=== PATIENT | female | born 1970 | race Caucasian/White ===

== ENCOUNTER 2016-10-17 18:48 | Inpatient (IN) | payer OTHER ==
[~2016-10-17] VITALS: Ht 160 cm; Wt 77.1 kg
--- NOTE | 2016-10-17 19:10 | NUR ---
PRESENTS TO THE ED COMPLAINING OF DIFF BREATHING. THIS PAST TUESDAY SHE HAD THE SAME PROBLEM AND SHE WAS EVALUATED AT THE [facility] WHERE SHE WAS DIAGNOSED WITH ASTHMA EXACERBATION. SHE PRESENTS TODAY WITH THE SAME SYMPTOMS HOWEVER HSE REPORTED IT IS WORSE NOW. ON ARRIVAL HE O2 WAS 88% FOR SHE WAS PLACED ON 2 L NC AND EKG WAS PERFORMED.
--- NOTE | 2016-10-17 19:16 | NUR ---
RESP AT BEDSIDE FOR DUO-NEB TREATMENT.
--- NOTE | 2016-10-17 19:26 | NUR ---
PA STUDENT AT BEDSIDE FOR EVAL.
--- NOTE | 2016-10-17 19:33 | ED DYSPNEA/ASTHMA COMPLAINT ---
History of Present Illness General Chief Complaint: Wheezing/Asthma Stated Complaint: ASTHMA ATTACK; 02 90% AT [facility] Source: patient Exam Limitations: no limitations Allergies Coded Allergies: No Known Allergies (10/17/16) Reconcile Medications Albuterol Sulfate (Proair Hfa) 90 MCG HFA.AER.AD 2 PUF INH Q4-6 PRN PRN SOB Budesonide/Formoterol Fumarate (Symbicort 160-4.5 Mcg Inhaler) 160 MCG-4.5 MCG/ ACTUATION HFA.AER.AD 2 PUF INH BID asthma Fluticasone Propionate 50 MCG/ACTUATION SPRAY.SUSP 2 SPRAY TAE DAILY nasal congestion Loratadine 10 MG TABLET 10 MG PO DAILY allergy Omeprazole 20 MG CAPSULE.DR 40 MG PO DAILY AC acid reduction Prednisone 10 MG TABLET 1 TAB PO SI ASTHMA TAKE 6 TABS FOR ONE DAY (10/21), THEN TAKE 5 TABS FOR TWO DAYS (10/22-10/23), THEN TAKE 4 TABS FOR TWO DAYS (10/24-10/25), THEN TAKE 3 TABS FOR TWO DAYS (10/26-10/27), THEN TAKE 2 TABS FOR TWO DAYS (10/28-10/29), THEN TAKE 1 TAB FOR TWO DAYS (10/30-10/31), THEN STOP. Triage Note: PRESENTS TO THE ED COMPLAINING OF DIFF BREATHING. THIS PAST TUESDAY SHE HAD THE SAME PROBLEM AND SHE WAS EVALUATED AT THE [facility] WHERE SHE WAS DIAGNOSED WITH ASTHMA EXACERBATION. SHE PRESENTS TODAY WITH THE SAME SYMPTOMS HOWEVER HSE REPORTED IT IS WORSE NOW. ON ARRIVAL HE O2 WAS 88% FOR SHE WAS PLACED ON 2 L NC AND EKG WAS PERFORMED. Triage Nurses Notes Reviewed? yes : No Patient currently breastfeeds: No HPI: 46 YO female with hx of asthma, presents with sob, started yesterday, wosre today, 6pm severe. ? dust allergy triggering it. inhailers arent working. she was seen tuesday at an urgent care and given neb treatment and felt better. no further treatment was given. no fever, no flu like illness, no cough or hemoptysis, no chest pain. she stopped her advair- does not take it consistantly. she is not a smoker. (ROBSON KIM,ZACH) Vital Signs & Intake/Output Vital Signs & Intake/Output ED Intake and Output 10/21 0000 10/20 1200 Intake Total 600 100 Output Total Balance 600 100 Intake, Oral 600 100 Past History Travel History Traveled to [place] past 21 day No Medical History Any Pertinent Medical History? see below for history Respiratory: asthma Surgical History Surgical History: non-contributory Psychosocial History What is your primary language Polish Tobacco Use: Never used Family History Hx Contributory? No (ZACH YUSUF) Review of Systems Review of Systems Constitutional: Reports: see HPI. EENTM: Reports: no symptoms. Respiratory: Reports: see HPI. Cardiovascular: Reports: no symptoms. GI: Reports: no symptoms. Genitourinary: Reports: no symptoms. Musculoskeletal: Reports: no symptoms. Skin: Reports: no symptoms. Neurological/Psychological: Reports: no symptoms. Hematologic/Endocrine: Reports: no symptoms. Immunologic/Allergic: Reports: no symptoms. All Other Systems: Reviewed and Negative (ZACH YUSUF) Physical Exam Physical Exam Respiratory: respiratory distress Comments: Well-developed well-nourished HEENT: Atraumatic, extraocular motion intact Neck: Supple, no lymphadenopathy Back: Nontender Respiratory: Moderate respiratory distress, increased respiratory rate and effort, tachypnea, diffuse wheezing and rhonchi noted throughout. Heart: Tachycardic no murmur Abdomen: Soft nontender nondistended Extremities: No edema, full range of motion, no calf pain. Neuro: Alert and oriented x3 Psych: Mood affect normal, normal memory normal judgment. Skin: Warm and dry, no rash on exposed skin (ZACH YUSUF) Core Measures ACS in differential dx? No Severe Sepsis Present: No Septic Shock Present: No (JERI BLAKELY,ARTURO Britt) Progress Differential Diagnosis: asthma, AMI, altitude sickness, bronchitis, costochondritis, CHF, COPD, musculoskeletal pain, pericarditis, pulmonary embolism, pneumonia, pneumothorax, rib fracture, unstable angina Diagnostic Imaging: Viewed by Me: Radiology Read. Discussed w/RAD: Radiology Read. CXR Impression: PATIENT: GERA CACERES PRESENT AGE: 46 PATIENT ACCOUNT NO: [id number] : 71 LOCATION: [facility] ORDERING PHYSICIAN: ZACH KIM SERVICE DATE: 10/17/16 EXAM TYPE: RAD - XRY-PORTABLE CHEST XRAY EXAMINATION: XR PORTABLE CHEST CLINICAL INFORMATION: Asthma exacerbation. Shortness of breath, wheezing. COMPARISON: No relevant prior studies are available for comparison. TECHNIQUE: Portable AP semiupright view of the chest was obtained. FINDINGS: No focal consolidation. No pneumothorax or pleural effusion. No enlargement of the cardiomediastinal silhouette. The visualized osseous and soft tissue structures are unremarkable. IMPRESSION: No focal consolidation. DICTATED BY: BANDAR ARNETT MD DATE/TIME DICTATED:1999 ONLINE CONTENT EDITOR:ABDULAZIZ Initial ED EKG: sinus tach at 105. no st/t wave changes. Rhythm Strip: sinus tachycardia Hand-Off Endorsed To: ARTURO CARMICHAEL MD Endorsed Time: 2100 Pending: other (re eval after MG iv given) Comments: Patient immediately brought into room 4 for evaluation due to hypoxia and wheezing and shortness of breath. DuoNeb treatment was ordered followed by 2 more albuterol treatments continuously. She was continuously monitored and reevaluated. She feels better however still with significant wheezing and rhonchi. Chest x-ray is unremarkable. EKG is unremarkable except for tachycardia. She was given 125 mg a site Medrol IV. Resting off oxygen her O2 sat was 90-91% after treatments. She was ambulated in the department and her O2 sat dropped to 87%, she felt off-balance and weak. She was placed back on supplemental oxygen via nasal cannula. At this time I do not feel as the patient is safe to be discharged home, will give HER-2 grams of magnesium IV and obtain blood tests and admission is considered. She was signed out to Dr. Carmichael at change of shift, she does not improve over the next hour or so we will admit her to the hospital. (ZACH YUSUF) Plan of Care: Orders Procedure Date/time Status Discharge Patient 10/20 UNK Active AEROSOL CHG 10/19 UNK Complete PEAK FLOW MEASUREMENT 10/19 UNK Complete OXYGEN 10/19 UNK Complete OXYGEN DAILY CHARGE 10/19 UNK Complete Departure Departure Disposition: STILL A PATIENT Condition: Stable Clinical Impression Primary Impression: Status asthmaticus Qualifiers: Asthma severity: severe persistent Qualified Code: J45.52 - Severe persistent asthma with status asthmaticus Secondary Impressions: Hypoxia Referrals: UNKNOWN (PCP/Family) Departure Forms: Customer Survey General Discharge Information Prescriptions: Current Visit Scripts Budesonide/Formoterol Fumarate (Symbicort 160-4.5 Mcg Inhaler) 2 PUF INH BID 28 Days Omeprazole 40 MG PO DAILY AC 28 Days Loratadine 10 MG PO DAILY 28 Days Albuterol Sulfate (Proair Hfa) 2 PUF INH Q4-6 PRN PRN SOB #1 INHAL Fluticasone Propionate 2 SPRAY TAE DAILY 28 Days Prednisone 1 TAB PO SI #42 TAB TAKE 6 TABS FOR ONE DAY (10/21), THEN TAKE 5 TABS FOR TWO DAYS (10/22-10/23), THEN TAKE 4 TABS FOR TWO DAYS (10/24-10/25), THEN TAKE 3 TABS FOR TWO DAYS (10/26-10/27), THEN TAKE 2 TABS FOR TWO DAYS (10/28-10/29), THEN TAKE 1 TAB FOR TWO DAYS (10/30-10/31), THEN STOP. (ZACH YUSUF) Admission Note Spoke With: STEPH ALEXANDER MD Documentation of Exam: Documentation of any treatments & extenuating circumstances including Concerns Regarding Discharge (functional status, medication knowledge or non-compliance, living conditions, etc.) that warrant an admission rather than observation: after 4.5 hours of ED time, multiple nebs, steroids, and magnesium, pt still wheezing, hypoxic, requiring supplemental 02... When ambulating, 02 sat dropped to 88%.... PA/GAS USAGE METER CLERK Co-Sign Statement Statement: ED Attending supervision documentation- [x] I saw and evaluated the patient. I have also reviewed all the pertinent lab results and diagnostic results. I agree with the findings and the plan of care as documented in the PA's/GAS USAGE METER CLERK's documentation. pt wheezing, hypoxic after ambulation. merits admission for supplemental 02, iv steroids. [] I have reviewed the ED Record and agree with the PA's/GAS USAGE METER CLERK's documentation. [] Additions or exceptions (if any) to the PAs/GAS USAGE METER CLERK's note and plan are summarized below: [] (JERI BLAKELY,ARTURO Britt) Critical Care Note Critical Care Note Critical Care Time: 30-74 min (ZACH YUSUF)
--- NOTE | 2016-10-17 19:41 | NUR ---
XRAY AT BEDSIDE.
--- NOTE | 2016-10-17 19:53 | NUR ---
PT MEDICATED WITH SOLU MEDROL 125MG IV.
--- NOTE | 2016-10-17 20:15 | RADIOLOGY REPORT ---
EXAMINATION: XR PORTABLE CHEST CLINICAL INFORMATION: Asthma exacerbation. Shortness of breath, wheezing. COMPARISON: No relevant prior studies are available for comparison. TECHNIQUE: Portable AP semiupright view of the chest was obtained. FINDINGS: No focal consolidation. No pneumothorax or pleural effusion. No enlargement of the cardiomediastinal silhouette. The visualized osseous and soft tissue structures are unremarkable. IMPRESSION: No focal consolidation.
--- NOTE | 2016-10-17 20:53 | NUR ---
PT UP FOR AMBULATORY O2 SAT WITH PA STUDENT.
--- NOTE | 2016-10-17 20:55 | NUR ---
AMBULATORY O2 SAT 88%. JULIO CHANCE AWARE.
--- NOTE | 2016-10-17 21:25 | NUR ---
JULIO CHANCE AT BEDSIDE.
[2016-10-17 21:42] LABS: ABSOLUTE BASOPHIL COUNT 0.1 /CUMM (0.0-0.2); ABSOLUTE EOSINOPHIL COUNT 0.9 /CUMM (0.0-0.7); ABSOLUTE LYMPH COUNT 1.1 /CUMM (1.2-3.4); ABSOLUTE MONOCYTE COUNT 0.5 /CUMM (0.10-0.60); BASOPHIL % 0.4 % (0.0-2.0); EOSINOPHIL % 6.6 % (0-5); HEMATOCRIT 43.9 % (37-47); MEAN CORPUSCULAR HGB 28.2 PG (27.0-31.0); MEAN CORPUSCULAR HGB CONC 32.7 G/DL (33.0-37.0); MEAN CORPUSCULAR VOLUME 86.1 FL (81.0-99.0); MEAN PLATELET VOLUME 8.5 FL (7.4-10.4); PLATELET COUNT 374 /CUMM (130-400); RBC DISTRIBUTION WIDTH 13.7 % (11.5-14.5); WHITE BLOOD CELL COUNT 13.6 /CUMM (4.8-10.8)
--- NOTE | 2016-10-17 23:04 | NUR ---
DR WILCOX AT BEDSIDE.
--- NOTE | 2016-10-18 01:08 | NUR ---
PT ASSIGNED TO ROOM 232-1
--- NOTE | 2016-10-18 01:13 | History & Physical ---
KELVIN BLAKELY,[facility] 10/18/16 0112: General Information and HPI MD Statement: I have seen and personally examined GERA CACERES and documented this H&P. The patient is a 46 year old F who presented with a patient stated chief complaint of [shortness of breath and wheezing]. Source of Information: patient, family, EMS Exam Limitations: no limitations History of Present Illness: Patient is a 46 YO F with PMH significant for asthma, seasonal allergies came to the ER with Shortness of breath, wheezing started around 2-3 weeks ago. It started as a seasonal allergic reaction, followed by upper respiratory infection which gradually got worse for the past couple of days. She went to a walkin clinic on tuesday, had some nebulization therapy, felt better. She reports nebulizers are not helping anymore. She usually had 4-6 episodes of asthma each year. She was diagnosed with asthma around 10 yrs ago, was never on maintenence therapy with inhalers. 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 She denies any cough, fever, chills. Denies any nausea, vomiting, abdominal pain, diarrhea/constipation. She also reports tiredness, fatigue, feeling unrefreshed after waking up. She also takes naps during day time, snores during nigth time. She never had a sleep study in the past and doesnt follow any records assistant. She regularly gets her flu shot. Allergies/Medications Allergies: Coded Allergies: No Known Allergies (10/17/16) Compliance With Home Meds: UNKNOWN Past History Travel History Traveled to [place] past 21 day No Medical History EENT: seasonal allergies Cardiovascular: NONE Respiratory: asthma Gastrointestinal: NONE Hepatic: NONE Renal: NONE Musculoskeletal: NONE Psychiatric: NONE Endocrine: NONE Blood Disorders: NONE Cancer(s): NONE Surgical History Surgical History: non-contributory Past Family/Social History Family History Relations & Conditions if any SISTER FH: asthma SON FH: asthma Psychosocial History Where do you live? Home Who Do You Live With? spouse Services at Home: None Smoking Status: Never Smoked ETOH Use: occasional use Illicit Drug Use: denies illicit drug use Functional Ability ADLs Independent: dressing, eating, toileting, bathing. Ambulation: independent IADLs Independent: shopping, housework, finances, food prep, telephone, transportation , medication admin. 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 EENTM: Reports: no symptoms, see HPI. Cardiovascular: Reports: no symptoms, see HPI. Respiratory: Reports: see HPI, short of breath, wheezing. GI: Reports: no symptoms, see HPI. Genitourinary: Reports: no symptoms, see HPI. Musculoskeletal: Reports: no symptoms, see HPI. Skin: Reports: no symptoms, see HPI. Neurological/Psychological: Reports: no symptoms, see HPI. Hematologic/Endocrine: Reports: no symptoms, see HPI. All Other Systems: Reviewed and Negative Comments ROS negative except the above Exam & Diagnostic Data Last 24 Hrs of Vital Signs/I&O Vital Signs Date Time Temp Pulse Resp B/P Pulse O2 O2 Flow FiO2 Ox Delivery Rate 10/18 0233 92 Nasal 2.0L Cannula 10/18 0209 97.8 91 20 114/70 92 Nasal 2.0L Cannula 10/18 0146 97.6 96 18 116/83 92 Nasal 2.0L Cannula 10/17 2256 98.6 100 18 118/70 91 Room Air 10/17 2016 94 Nasal 2.0L Cannula 10/17 1925 Nasal Cannula 10/17 1919 97 Nasal 4.0L Cannula 10/17 1909 98.6 109 24 152/93 92 Nasal 4.0L Cannula Intake & Output 10/18 0800 10/18 0000 10/17 1600 Intake Total 0 Output Total Balance 0 Intake, Oral 0 Patient 77.111 kg 77.111 kg Weight Physical Exam General Appearance Alert, Oriented X3, Cooperative, No Acute Distress Skin No Rashes, No Breakdown HEENT Atraumatic, PERRLA, EOMI Neck Supple Cardiovascular Regular Rate, Normal S1, Normal S2, No Murmurs, Gallops, Rubs Lungs Normal Air Movement, Diffuse expiratory wheezing present Abdomen Normal Bowel Sounds, Soft, No Tenderness Neurological Normal Gait, Normal Speech, Strength at 5/5 X4 Ext Extremities No Clubbing, No Cyanosis, No Edema Vascular Normal Pulses, Pulses Symmetrical Last 24 Hrs of Labs/Quan: Laboratory Tests 10/17/162118: Anion Gap 14, Estimated GFR > 60, BUN/Creatinine Ratio 11.1, Glucose 159 H, Calcium 9.4, Total Bilirubin 0.8, AST 20, ALT 29, Alkaline Phosphatase 79, Total Protein 7.5, Albumin 4.3, Globulin 3.2, Albumin/Globulin Ratio 1.3, CBC w Diff NO MAN DIFF REQ, RBC 5.10, MCV 86.1, MCH 28.2, RDW 13.7, MPV 8.5, Gran % 81.0 H , Lymphocytes % 8.4 L, Monocytes % 3.6, Eosinophils % 6.6 H, Basophils % 0.4, Absolute Granulocytes 11.0 H, Absolute Lymphocytes 1.1 L, Absolute Monocytes 0.5, Absolute Eosinophils 0.9, Absolute Basophils 0.1, PUBS MCHC 32.7 L Diagnostic Data EKG Results Sinus Tachycardia, QTc 429, HR 105 CXR Results IMPRESSION: No focal consolidation. Assessment/Plan Assessment: Patient is a 46 YO F with PMH significant for asthma, seasonal allergies came to the ER with Shortness of breath, wheezing started around 2-3 weeks ago. It started as a seasonal allergic reaction, followed by upper respiratory infection which gradually got worse for the past couple of days. ER Vital Signs Temp 98.6, pulse 109, BP 152/93mmHg, 2L NC Signficant labs include white count of 13.6, H&H of 14/43 Cr of 0.6 Imaging CXR - No focal consolidation evident Plan Acute exacerbation of asthma * received a single dose of 125mg solumedrol IV in ER along with nebulization therapy * IV solumedrol 40mg Q8 * TRC/Nebs * Pulm consult in am Obstructive sleep apnea * Snores during night, feels tired, takes naps during day time. * Never being evaluated * Would benefit from a sleep study * Pulm consult in am History of seasonal allergies * Her home dose of claritin can be continued DVT prophylaxis * SC lovenox Code Status * Full Code As Ranked By This Provider Problem List: 1. Status asthmaticus Qualifiers Asthma severity: severe persistent Qualified Code: J45.52 - Severe persistent asthma with status asthmaticus 2. Hypoxia Core Measures/Miscellaneous Acute Coronary Syndrome ACS Diagnosis: No Cerebrovascular Accident CVA/TIA Diagnosis: No Congestive Heart Failure CHF Diagnosis: No Venous Thromboembolism VTE Risk Factors: Acute medical illness VTE Prophylaxis Ordered Inpt: Pharm- Lovenox No Mech VTE prophylaxis d/t: No contraindications No VTE Pharm Prophylaxis d/t: No contraindications VTE Diagnosis: No VTE Type: NONE VTE Confirmed by (Test): NONE Severe Sepsis Severe Sepsis Present: No Septic Shock Septic Shock Present: No Miscellaneous Documentation Attending Case Discussed With: STEPH ALEXANDER MD Primary Care Physician: UNKNOWN Patient sees these Specialists none Level of Patient Care: General Medicine TREY SCHAFER MD 10/18/16 0152: Resident Review Statement Resident Statement: examined this patient, discussed with events intern, agreed with events intern, discussed with family, reviewed EMR data (avail), reviewed images, amended to note Other Findings: This is 46-year-old female with past medical history of asthma and seasonal allergies presented from home with chief complaint of 2 days history of worsening shortness of breath associated with wheezing. Patient was seen at urgent care clinic on last Tuesday and received nebulizer treatment with significant symptom improvement. Patient is not on any maintenance treatment for asthma and last evening she started having significant shortness of breath which progressed over a period of last 24 hours significant wheezing requiring her to ER for further evaluation. She denies any fever, chills, sick contacts, recent travel, chest pain, chest tightness, nausea, vomiting, abdominal pain, diarrhea/constipation or urinary symptoms. 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 Patient's also reports that patient has been sleeping terribly for past few months and always make noise and noted for waking up in between sleep with difficulty in breathing. She reports not feeling depressed on taking up in the morning and also reports requiring to take daytime naps. Patient claims she has been having 4-6 episode of asthma attack per year with most recent episode 2 months prior to admission. Her vitals on admission were T 98.6, HR 109, RR 24, BP 152/93, O2 sat 92% on 2 L oxygen On physical exam patient is alert oriented 3 in no acute distress, HEENT PERRLA EOMI, neck supple, heart S1-S2 normal without murmur, lungs noted having bilateral wheezing, abdomen soft nontender nondistended with preserved bowel sounds, no peripheral edema, no focal gross neuro deficit. Labs revealed leukocytosis of 13,600, H&H 14.4/43.9, normal electrolytes, BUN 10 , creatinine 0.9, Glucose 159, normal LFT Chest x-ray noted unremarkable. EKG showed sinus tachycardia at rate of 105 with normal axis and no acute ST-T wave changes, QTC 429 Assessment: This is 46-year-old female with past medical history of asthma who is not on any maintenance treatment presented from home with 2 days history of progressively worsening shortness of breath and wheezing noted to have significant respiratory distress on admission which improved after dose of IV Solu-Medrol in ER suggestive of asthma exacerbation. 1. Acute asthma exacerbation - Admit to general medicine floor - Supplement O2 - Continue IV Solu-Medrol 40 mg every 8 hours - TRC treatment - Consider pulmonology consult - Once patient's symptoms improved switch IV Solu-Medrol to oral prednisone taper - Patient will be benefited with maintenance inhaler - Patient need outpatient evaluation for sleep apnea as patient's reports episode of apnea during sleep and she claims feeling tired upon awakening and also requiring daytime naps 2. DVT prophylaxis Subcutaneous Lovenox 3. Full code CATHERINE BLAKELY, [facility] 10/18/16 0444: Attending MD Review Statement Attending Statement Attending MD Statement: examined this patient, discuss w/resident/PA/ASSOCIATE SOFTWARE DEVELOPMENT ENGINEER, agreed w/resident/PA/ASSOCIATE SOFTWARE DEVELOPMENT ENGINEER, discussed with family Attending Assessment/Plan: 46 yo F nonsmoker with h/o asthma with about 4-5 exacerbations every year, seasonal allergies on PRN claritin, is here with dyspnea on exertion, wheezing over past 2 weeks, especially worse over past 24 hours. She was seen at an Urgent care center 2 days ago, given nebulizers with some relief. She is not on any inhalers at home. 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 She did have upper respiratory symptoms initially, cough with minimal phlegm. Received her flu shot. No second hand smoke exposure. She c/o feeling weak and off-balance on walking. Vitals: tachycardia, afebrile, sats 88% RA --> O2 sat 92% on 2 L oxygen. Ambulatory sats dropped to 87%. Exam: AAO, able to speak in full sentences, not using accessory muscles of respiration. Chest b/l expiratory wheezing+ with scattered rhonchi. Labs: WBC 13.6, CXR no pneumonia. EKG: Sinus tachycardia. 1. Asthma exacerbation with hypoxia. TRC nebs Q4 hours, keep O2 sats > 92%, IV steroids, check peak flow every shift, Pulm consult in AM. Restart claritin daily. Consider outpatient sleep study, PFTs. DVT ppx Lovenox. Full code.
--- NOTE | 2016-10-18 01:24 | NUR ---
HOUSESTAFF AT BEDSIDE.
--- NOTE | 2016-10-18 01:38 | NUR ---
REPORT GIVEN TO LILY FARFAN ON 2NA.
[2016-10-18 02:09] VITALS: BP 114/70
--- NOTE | 2016-10-18 02:43 | NUR ---
NURSING NOTE: PT ARRIVED TO 2NA VIA STRETCHER @ 7120. PT ALERT, ORIENTED, CALM, AND COOPERATIVE. 2L NC IN PLACE. NO FAMILY AT BEDSIDE. PT ORIENTED TO ROOM, STAFF, AND CALL CAVLO. ALL VITAL SIGNS WNL. ADMISSION ASSESSMENT COMPLETED. NO SIGNS RESPIRATORY DISTRESS. RN WILL CONTINUE TO MONITOR.
--- NOTE | 2016-10-18 03:56 | Admission Certification ---
Admission Certification Certification Statement - As attending physician, I certify that at the time of - admission, based on clinical presentation, severity of - symptoms, need for further diagnostic testing and - therapeutic interventions, and risk of adverse outcomes - without in-hospital treatment, in my clinical assessment, - this patient requires an acute hospital stay for a minimum - of two nights or longer. I have also considered psychsocial - factors such as support system, advanced age, financial - issues, cognitive issues, and failed out-patient treatments, - past re-admission history, safety of patient, and lack of - compliance as applicable. Specific rationale supporting this admission is: Asthma exacerbation.
[2016-10-18 06:00] VITALS: BP 128/70
[2016-10-18 07:59] LABS: ABSOLUTE BASOPHIL COUNT 0 /CUMM (0.0-0.2); ABSOLUTE EOSINOPHIL COUNT 0 /CUMM (0.0-0.7); ABSOLUTE GRANULOCYTE CT 6.9 /CUMM (1.4-6.5); ABSOLUTE LYMPH COUNT 0.8 /CUMM (1.2-3.4); ABSOLUTE MONOCYTE COUNT 0.2 /CUMM (0.10-0.60); BASOPHIL % 0.3 % (0.0-2.0); EOSINOPHIL % 0.1 % (0-5); HEMATOCRIT 42.2 % (37-47); MEAN CORPUSCULAR HGB 28.5 PG (27.0-31.0); MEAN CORPUSCULAR HGB CONC 33.5 G/DL (33.0-37.0); MEAN CORPUSCULAR VOLUME 85.2 FL (81.0-99.0); MEAN PLATELET VOLUME 8.6 FL (7.4-10.4); RBC DISTRIBUTION WIDTH 13.5 % (11.5-14.5); RED BLOOD CELL CT 4.95 /CUMM (4.20-5.40); WHITE BLOOD CELL COUNT 7.9 /CUMM (4.8-10.8)
--- NOTE | 2016-10-18 08:28 | Cons- Pulmonary ---
General Information and HPI Consulting Request Date of Consult: 10/18/16 Requested By: jd Reason for Consult: Asthma History of Present Illness: Patient is a 46-year-old nonsmoker with chronic asthma admitted with exacerbation. Patient reports 4-5 episodes of asthma a year for which she is treated with antibiotics by mouth steroids and Symbicort. Between she is on no medications. No significant environmental allergies. She is unclear as to the specific trigger was for this attack. She was treated with nebs steroids and feels significantly improved though remains on low-flow nasal oxygen. She denies sinus congestion or history of reflux Allergies/Medications Allergies: Coded Allergies: No Known Allergies (10/17/16) Review of Systems Review of Systems Constitutional: Denies: chills, fever. Cardiovascular: Denies: chest pain, peripheral edema. Respiratory: Reports: cough, short of breath, wheezing. Denies: sputum production, stridor. GI: Denies: abdominal pain, diarrhea, melena. 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 Home Who Do You Live With? spouse Services at Home: None Smoking Status: Never Smoked ETOH Use: occasional use Illicit Drug Use: denies illicit drug use Functional Ability ADLs Independent: dressing, eating, toileting, bathing. Ambulation: independent IADLs Independent: shopping, housework, finances, food prep, telephone, transportation , medication admin. 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 Exam & Diagnostic Data Last 24 Hrs of Vital Signs/I&O Vital Signs Date Time Temp Pulse Resp B/P Pulse O2 O2 Flow FiO2 Ox Delivery Rate 10/18 0800 Room Air 10/18 0600 97.9 71 20 128/70 94 Nasal Cannula 10/18 0233 92 Nasal 2.0L Cannula 10/18 0209 97.8 91 20 114/70 92 Nasal 2.0L Cannula 10/18 0146 97.6 96 18 116/83 92 Nasal 2.0L Cannula 10/176 98.6 100 18 118/70 91 Room Air 10/17 2016 94 Nasal 2.0L Cannula 10/175 Nasal Cannula 10/17 1918 97 Nasal 4.0L Cannula 10/17 1908 98.6 109 24 152/93 92 Nasal 4.0L Cannula Intake & Output 10/18 1600 10/18 0800 10/18 0000 Intake Total 150 0 Output Total Balance 150 0 Intake, Oral 150 0 Patient 170 lb 170 lb Weight Oxygen saturation 2 L 94% exam for chest shows scattered expiratory wheezing cardiac exam shows a regular S1 and S2 without murmurs abdominal exam soft nontender there's no edema Last 48 Hrs of Labs/Quan: Laboratory Tests 10/18/16 0620: Sodium Pending, Potassium Pending, Chloride Pending, Carbon Dioxide Pending, Anion Gap Pending, BUN Pending, Creatinine Pending, BUN/Creatinine Ratio Pending , CBC w Diff Pending, WBC Pending, RBC Pending, Hgb Pending, Hct Pending, MCV Pending, MCH Pending, RDW Pending, Plt Count Pending, MPV Pending, Gran % Pending, Lymphocytes % Pending, Monocytes % Pending, Eosinophils % Pending, Basophils % Pending, Absolute Granulocytes Pending, Absolute Lymphocytes Pending , Absolute Monocytes Pending, Absolute Eosinophils Pending, Absolute Basophils Pending, PUBS MCHC Pending 10/17/169: Anion Gap 14, Estimated GFR > 60, BUN/Creatinine Ratio 11.1, Glucose 159 H, Calcium 9.4, Total Bilirubin 0.8, AST 20, ALT 29, Alkaline Phosphatase 79, Total Protein 7.5, Albumin 4.3, Globulin 3.2, Albumin/Globulin Ratio 1.3, CBC w Diff NO MAN DIFF REQ, RBC 5.10, MCV 86.1, MCH 28.2, RDW 13.7, MPV 8.5, Gran % 81.0 H , Lymphocytes % 8.4 L, Monocytes % 3.6, Eosinophils % 6.6 H, Basophils % 0.4, Absolute Granulocytes 11.0 H, Absolute Lymphocytes 1.1 L, Absolute Monocytes 0.5, Absolute Eosinophils 0.9, Absolute Basophils 0.1, PUBS MCHC 32.7 L Assessment/Plan Impression/Plan: 46-year-old woman with asthma admitted with acute asthma attack. She appears to be improved with nebs and IV steroids. She will need outpatient follow-up for pulmonary function testing. In review of need for chronic anti-inflammatory regimen. Recommendations: Continue IV steroids for today Taper FiO2 his saturations allow assess sputum C& S. Continue nebulized bronchodilators. I would anticipate by mouth prednisone tomorrow with anticipated discharge and outpatient follow-up Consult Acknowledgment - Thank you for your consult request.
[2016-10-18 09:02] LABS: GRANULOCYTE % 87.4 % (42.2-75.2); PLATELET COUNT 372 /CUMM (130-400)
--- NOTE | 2016-10-18 10:51 | NUR ---
PT ON 2LNC ON INITIAL ASSESSMENT THIS AM. AFTER RESPIRATORY TREATMENT, RESPIRATORY THERAPIST DECREASED O2 TO 1LNC. PT OOB TO SHOWER INDEPENDENTLY ON RA. DENIED DIZZINESS OR DIFFICULTY BREATHING. AMBULATING AROUND THE ROOM. O2 SAT ON RA 88-89%. PLACED BACK ON 1LNC. WILL MONITOR.
[2016-10-18 13:53] VITALS: BP 130/78
--- NOTE | 2016-10-18 16:20 | PN- Att Addend ---
Attending Addendum Attending Brief Note Pt seen and examined at bedside. d/w resident the care plan. Pt with 4-6 episodes per year of asthma exacerbation. She had allergy testing done and was told she is allergic to dust. Pt doing better now and her asthma exacerbation is resolving. She still has b/l mild wheezing on exam. Will likely be able to taper to po steroids tomorrow. Pt will benefit from outpt pulmonary follow up and also from inhaled steroids and LABA . d/w pt the care plan.
--- NOTE | 2016-10-18 19:25 | NUR ---
ALERT AND ORIENTED X 3. VITAL SIGNS STABLE. ON 1L O2 VIA NASAL CANNULA NO DISCOMFORT NOTED. PATIENT AMBULATING AROUND HALLWAY AT THIS TIME NO SHORTNESS OF BREATH NOTED. WILL CONTINUE TO MONITOR
[2016-10-18 22:55] VITALS: BP 122/80
[2016-10-19 06:57] VITALS: BP 98/60
--- NOTE | 2016-10-19 07:26 | PN- Housestaff ---
Subjective Follow-up For: Acute asthma exacerbation Complaints: no complaints Subjective: Patient was followed up and examined by me today. She is lying comfortably on the bed without additional oxygen, and does not have any respiratory distress, or any complaints. Vitals have been stable overnight. Review of Systems Constitutional: Reports: no symptoms. EENTM: Reports: no symptoms. Cardiovascular: Reports: no symptoms. Respiratory: Reports: no symptoms. Gastrointestinal: Reports: no symptoms. Genitourinary: Reports: no symptoms. Neurological/Psychological: Reports: no symptoms. Objective Last 24 Hrs of Vital Signs/I&O Vital Signs Date Time Temp Pulse Resp B/P Pulse O2 O2 Flow FiO2 Ox Delivery Rate 10/19 1600 96 Nasal 1.0L Cannula 10/19 1412 98.1 78 20 120/60 96 Nasal 1.0L Cannula 10/19 0854 92 Room Air 10/19 0800 96 Nasal 1.0L Cannula 10/19 0657 97.6 65 16 98/60 96 Nasal 1.0L Cannula 10/19 0000 Nasal 1.0L Cannula 10/18 2255 97.9 86 20 122/80 96 Nasal 1.0L Cannula Intake & Output 10/19 1600 10/19 0800 10/19 0000 Intake Total 600 Output Total Balance 600 Intake, Oral 600 Physical Exam General Appearance: Alert, Oriented X3, Cooperative, No Acute Distress Other Physical Findings: Physical examnination: General: well nourished patient not in distress Head: Normocephalic, atraumatic Eyes: Pupils normal in size, regular, reacting to light and accommodation, EOM normal Ears: B/l normal on inspection Nose: Normal on inspection Throat/mouth: Moist mucosa Neck: Supple, full range of motion, no thyromegaly Heart: Regular rate, regular rhythm Lung: Normal breath sound bilaterally Added sound not heard Abd: Soft, non-tender, no distention appreciated Back: Normal range of motion Extremities: Normal knee exam bilaterally, no pedal edema, Distal neurovascular intact Neurologic: Alert, oriented x3, Cranial exam grossly intact, Speech is clear and coherent Skin: Warm and dry Psychiatric: Calm, cooperative, coherant Current Medications: Current Medications Sig/Chris Start time Last Medication Dose Route Stop Time Status Admin Albuterol Sulfate 3 ML EVERY 4 HRS/AWAKE 10/18 1200 AC 10/19 INH 1138 Budesonide/ 2 PUF BID 10/19 1000 AC 10/19 Formoterol Fumarate INH 1351 Enoxaparin Sodium 40 MG DAILY 10/18 1000 AC 10/19 SC 0929 Loratadine 10 MG DAILY 10/18 1000 AC 10/19 PO 0929 Methylprednisolone 40 MG Q12 10/19 2200 AC IV Methylprednisolone 40 MG Q8 10/18 0600 DC 10/19 IV 1350 Omeprazole 40 MG DAILY AC 10/18 0700 AC 10/19 PO 0542 Patient Medication 1 ED .[facility] 10/19 1410 [place] Teaching ED 10/19 1411 Assessment/Plan Assessment: 46-year-old female with significant past medical history of only asthma currently not under any treatment plan came in the emergency with complaints of shortness of breath. She is currently being treated in the general medical floor for the following issues: #Acute exacerbation of asthma Patient has significantly improved since the admission, as he has been getting IV steroids and total respiratory care with proper nebulizations. She is not requiring additional oxygen and is very comfortable right now. Update: Her saturation dropped to 80s upon ambulation trial, and she does not have any oxygen at home. Repeat examination gives similar results, so patient will be was to overnight and if oxygen saturation improves upon ambulation tomorrow then plan to discharge her in the morning. #DVT prophylaxis: Lovenox #Diet plan: Regular diet #CODE STATUS: Full code Problem List: 1. Asthma exacerbation Pain Ratin Pain Location: - Pain Goal: Remain pain free Pain Plan: - Tomorrow's Labs & Rationales: -, possible DC in the AM, patient getting better
--- NOTE | 2016-10-19 08:11 | PN- Pulmonary ---
Subjective HPI/Critical Care Issues: Patient feels significantly improved shortness of breath has resolved Objective Current Medications: Current Medications Sig/Chris Start time Last Medication Dose Route Stop Time Status Admin Albuterol Sulfate 3 ML EVERY 4 HRS/AWAKE 10/18 1200 AC 10/18 INH 1955 Enoxaparin Sodium 40 MG DAILY 10/18 1000 AC 10/18 SC 0915 Loratadine 10 MG DAILY 10/18 1000 AC 10/18 PO 0915 Methylprednisolone 40 MG Q8 10/18 0600 AC 10/19 IV 0542 Omeprazole 40 MG DAILY AC 10/18 0700 AC 10/19 PO 0542 Patient Medication 1 ED .[facility]-MED ONE 10/18 1402 DC Teaching ED 10/18 1403 Vital Signs & I&O Last 24 Hrs of Vitals and I&O: Vital Signs Date Time Temp Pulse Resp B/P Pulse O2 O2 Flow FiO2 Ox Delivery Rate 10/19 0657 97.6 65 16 98/60 96 Nasal 1.0L Cannula 10/19 0000 Nasal 1.0L Cannula 10/18 2255 97.9 86 20 122/80 96 Nasal 1.0L Cannula 10/18 1600 Nasal 1.0L Cannula 10/18 1557 94 Nasal 1.0L Cannula 10/18 1353 98.0 100 20 130/78 92 10/18 0844 Nasal 2.0L Cannula Oxygen saturation 1 L 96% exam for chest shows clear lung benson good air entry without wheezes cardiac exam shows a regular S1 and S2 without murmurs Impression/Plan Impression/Plan Impression/Plan: 46-year-old woman with asthma admitted with acute asthma attack which has resolved Recommendations: DC IV steroids begin by mouth prednisone. Assess room air oxygen saturation. Patient appears stable for discharge. Begin inhaled steroid LABA combination. Outpatient office follow-up
[2016-10-19] MEDS ORDERED: OMEPRAZOLE20 M2 PO (09:19)
[2016-10-19] MEDS ORDERED: SYMBICORT 16010.2 GM INH (09:19)
[2016-10-19] MEDS ORDERED: PROAIR HFA8.5 GM INH (10:09)
[2016-10-19] MEDS ORDERED: LORATADINE10 M1 PO (10:09)
--- NOTE | 2016-10-19 10:17 | Patient Discharge Instructions ---
Discharge Instructions General Discharge Information You were seen/treated for: Acute exacerbation of asthma Special Instructions: Please use Pro Air inhaler if you have shortness of breath anytime. Please visit your electrician radio within the next week. Please visit your primary care physician within 10 days of discharge. Diet Continue normal diet: Yes Recommended Diet: Heart Healthy Activity Full Activity/No Limits: Yes Activity Self Limited: Yes Acute Coronary Syndrome Inclusion Criteria At DC or during hospital stay patient has or had the following: ACS DIAGNOSIS No Discharge Core Measures Meds if any: Prescribed or Continued at Discharge Meds if any: NOT Prescribed or Continued at Discharge Congestive Heart Failure Inclusion Criteria At DC or during hospital stay patient has or had the following: CHF DIAGNOSIS No Discharge Core Measures Meds if any: Prescribed or Continued at Discharge Meds if any: NOT Prescribed or Continued at Discharge Cerebrovascular accident Inclusion Criteria At DC or during hospital stay patient has or had the following: CVA/TIA Diagnosis No Discharge Core Measures Meds if any: Prescribed or Continued at Discharge Meds if any: NOT Prescribed or Continued at Discharge Venous thromboembolism Inclusion Criteria VTE Diagnosis No VTE Type NONE VTE Confirmed by (Test) NONE Discharge Core Measures - Per Current guidelines, there needs to be overlap - treatment for the first 5 days of Warfarin therapy. - If discharged on Warfarin prior to 5 days of - overlap therapy, the patient will need to be - assessed for post discharge needs including - *Post discharge parental anticoagulation - *Warfarin and/or parental anticoagulation education - *Follow up date to check INR post discharge At least 5 days overlap therapy as Inpatient No Meds if any: Prescribed or Continued at Discharge Note: Overlap Therapy is Warfarin and Anticoagulant Meds if any: NOT Prescribed or Continued at Discharge
[2016-10-19] MEDS ORDERED: PREDNISONE10 M2 PO (10:22)
[2016-10-19 14:12] VITALS: BP 120/60
--- NOTE | 2016-10-19 14:19 | NUR ---
O2 SAT 87 ON RA WITH AMBULATION, NOTIFIED, CONTINUE TO MONITOR
--- NOTE | 2016-10-19 16:47 | PN- Att Addend ---
Attending MD Review Statement Attending Statement Attending MD Statement: examined this patient, discuss w/resident/PA/INSTRUCTOR ADJUNCT SURGICAL TECHNICIAN, agreed w/resident/PA/INSTRUCTOR ADJUNCT SURGICAL TECHNICIAN, reviewed EMR data (avail), discussed w/nursing, discussed w/ case mgmt Attending Assessment/Plan: Pt seen and examined at bedside. d/w resident the care plan. Pt with 4-6 episodes per year of asthma exacerbation. She had allergy testing done and was told she is allergic to dust. Pt doing better now and her asthma exacerbation is resolving. Pt having desaturations with ambulation, so plan is to continue her on iv steroids today and possible dc tomorrow on steroid taper.
[2016-10-19 21:30] VITALS: BP 116/70
[2016-10-20 05:47] VITALS: BP 112/74
--- NOTE | 2016-10-20 07:58 | PN- Pulmonary ---
Subjective HPI/Critical Care Issues: Patient feels comfortable without shortness of breath Objective Current Medications: Current Medications Sig/Chris Start time Last Medication Dose Route Stop Time Status Admin Albuterol Sulfate 3 ML EVERY 4 HRS/AWAKE 10/18 1200 AC 10/19 INH 2035 Budesonide/ 2 PUF BID 10/19 1000 AC 10/19 Formoterol Fumarate INH 210 Enoxaparin Sodium 40 MG DAILY 10/18 1000 AC 10/19 SC 0929 Loratadine 10 MG DAILY 10/18 1000 AC 10/19 PO 0929 Methylprednisolone 40 MG Q12 10/19 2200 AC 10/19 IV 2107 Methylprednisolone 40 MG Q8 10/18 0600 DC 10/19 IV 1350 Omeprazole 40 MG DAILY AC 10/18 0700 AC 10/20 PO 0603 Patient Medication 1 ED .[facility]-MED ONE 10/19 1410 DC Teaching ED 10/19 1411 Vital Signs & I&O Last 24 Hrs of Vitals and I&O: Vital Signs Date Time Temp Pulse Resp B/P Pulse O2 O2 Flow FiO2 Ox Delivery Rate 10/20 0547 97.7 66 20 112/74 94 Room Air 10/19 2130 98.4 73 20 116/70 97 Room Air 10/19 2035 95 Room Air 10/19 1600 96 Nasal 1.0L Cannula 10/19 1412 98.1 78 20 120/60 96 Nasal 1.0L Cannula 10/19 0854 92 Room Air 10/19 0800 96 Nasal 1.0L Cannula Intake & Output 10/20 0800 10/20 0000 10/19 1600 Intake Total 510 600 Output Total Balance 510 600 Intake, IV 30 Intake, Oral 480 600 Room air oxygen 94-97% exam for chest shows clear lung benson cardiac exam shows regular S1 and S2 without murmurs. Impression/Plan Impression/Plan Impression/Plan: 46-year-old woman with asthma admitted with acute asthma attack which has resolved Recommendations: DC IV steroids begin by mouth prednisone. Check exercise oximetry with the expectation for discharge and outpatient follow-up in the office
--- NOTE | 2016-10-20 08:29 | PN- Housestaff ---
Subjective Follow-up For: Acute exacerbation of asthma Subjective: Patient is seen and examined at bedside. Nursing staff report desaturation of 88% on ambulation that happened yesterday. No acute overnight event reported by nursing staff. Patient does not endorse any new complaints of increased shortness of breath, chest tightness, chest pain, palpitation, fever or chills. Review of Systems Constitutional: Denies: see HPI. Objective Last 24 Hrs of Vital Signs/I&O Vital Signs Date Time Temp Pulse Resp B/P Pulse O2 O2 Flow FiO2 Ox Delivery Rate 10/20 0814 92 Room Air 10/20 0547 97.7 66 20 112/74 94 Room Air 10/19 2130 98.4 73 20 116/70 97 Room Air 10/19 2035 95 Room Air 10/19 1600 96 Nasal 1.0L Cannula 10/19 1412 98.1 78 20 120/60 96 Nasal 1.0L Cannula Intake & Output 10/20 1600 10/20 0800 10/20 0000 Intake Total 100 510 Output Total Balance 100 510 Intake, IV 30 Intake, Oral 100 480 Physical Exam General Appearance: Alert, Oriented X3, Cooperative Other Physical Findings: General: well nourished patient not in distress Head: Normocephalic, atraumatic Eyes: Pupils normal in size, regular, reacting to light and accommodation, EOM shandra Neck: Supple, full range of motion, no thyromegaly Heart: Regular rate, regular rhythm Lung: Normal breath sound bilaterally Added sound not heard Abd: Soft, non-tender, no distention appreciated Back: Normal range of motion Extremities: Normal knee exam bilaterally, no pedal edema, Distal neurovascular intact Neurologic: Alert, oriented x3, Cranial exam grossly intact, Speech is clear and coherent Skin: Warm and dry Current Medications: Current Medications Sig/Chris Start time Last Medication Dose Route Stop Time Status Admin Albuterol Sulfate 3 ML EVERY 4 HRS/AWAKE 10/18 1200 AC 10/20 INH 1107 Budesonide/ 2 PUF BID 10/19 1000 AC 10/20 Formoterol Fumarate INH 0950 Enoxaparin Sodium 40 MG DAILY 10/18 1000 AC 10/20 SC 0950 Fluticasone 2 SPRAY DAILY 10/20 1000 AC 10/20 Propionate TAE 1139 Loratadine 10 MG DAILY 10/18 1000 AC 10/20 PO 0950 Methylprednisolone 40 MG Q12 10/19 2200 DC 10/19 IV 2107 Methylprednisolone 40 MG Q8 10/18 0600 DC 10/19 IV 1350 Omeprazole 40 MG DAILY AC 10/18 0700 AC 10/20 PO 0603 Patient Medication 1 ED .[facility]-MED ONE 10/19 1410 [place] Teaching ED 10/19 1411 Prednisone 60 MG DAILY 10/20 1000 AC 10/20 PO 1139 Assessment/Plan Assessment: 46-year-old female with significant past medical history of only asthma currently not under any treatment plan came in the emergency with complaints of shortness of breath. She is currently being treated in the general medical floor for the following issues: #Acute exacerbation of asthma Patient has significantly improved since the admission, as he has been getting IV steroids and total respiratory care with proper nebulizations. Patient had improvement on her saturation during ambulation when compared to yesterday. Patient saturating around 89-90% on ambulation. Plan Patient is stable with no acute complaints of shortness of breath or any other complaints. Patient will be discharged today with a prednisone taper. Patient is also given prescription for fluticasone nasal spray, loratadine, Symbicort, and omeprazole. #DVT prophylaxis: Lovenox #Diet plan: Regular diet #CODE STATUS: Full code Problem List: 1. Asthma exacerbation Pain Ratin Pain Location: none Pain Goal: Remain pain free Pain Plan: APAP mild pain Oxycodone for moderate to severe pain Morphine for severe pain Tomorrow's Labs & Rationales: none-plan to discharge
[2016-10-20] MEDS ORDERED: FLUTICASONE PRO16 GM NAS (10:34)
[2016-10-20] MEDS ORDERED: PREDNISONE10 M2 PO (10:34)
--- NOTE | 2016-10-20 13:18 | PN- Att Addend ---
Attending MD Review Statement Attending Statement Attending MD Statement: examined this patient, discuss w/resident/PA/PAID INTERNSHIP, agreed w/resident/PA/PAID INTERNSHIP, reviewed EMR data (avail), discussed w/nursing Attending Assessment/Plan: Pt seen and examined at bedside. d/w resident the care plan. Pt with 4-6 episodes per year of asthma exacerbation. She had allergy testing done and was told she is allergic to dust. Pt doing better now and her asthma exacerbation is resolving. No desaturations with ambulation today. DC home today.
--- NOTE | 2016-10-28 15:03 | Discharge Summary ---
Visit Information Visit Dates Admission Date: 10/17/16 Discharge Date: 10/20/2016 Hospital Course Course Attending Physician: JENN BLAKELY,HAIDER Vieyra Primary Care Physician: UNKNOWN Hospital Course: This is a 46 yo F nonsmoker with h/o asthma with about 4-5 exacerbations every year, seasonal allergies on PRN claritin, presented with complaints of dyspnea on exertion, wheezing over past 2 weeks, especially worse over past 24 hours. She was previously seen at an Urgent care center 2 days prior,and was sent home with nebulizers which she report having some symptomatic relief. 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 Vitals on admission: tachycardia, afebrile, sats 88% RA --> O2 sat 92% on 2 L oxygen. Ambulatory sats dropped to 87%. Exam: AAO, able to speak in full sentences, not using accessory muscles of respiration. Chest b/l expiratory wheezing+ with scattered rhonchi. Labs: WBC 13.6, CXR no pneumonia. EKG: Sinus tachycardia. At the ED, she required 2L NC to keep maintan her sats. She received Solumedrol IV, Ipratropium/albuterol nebulizer, and Mg Sulfate IV. Her oxygen sats were >91 % after treatment. However, she desated to below 88% when ambulated. Pt was then admitted for acute asthma exercabation. She was continued on Solumedrol IV and then transitioned to prednisone 60mg oral dose the following day. Pt also received Ipratroprum/albuterol nebulizer treatment as needed. Pulmonology consult was obtained and reccomended LABA and inhaled corticosteroid. Pt respiratory status improved the following next 2 days with her oxygen tapered from 2L to room on discharge date. Pt was discharged on 10/20/15 with new home meds of Symbicort, Fluticasone, Proair, Prednisone taper , and omeprazole (Please see med list for details). Pt was also given a referral to follow up with Dr Tran (pulm) within 1 week. Allergies: Coded Allergies: No Known Allergies (10/17/16) Disposition Summary Disposition Principal Diagnosis: Asthma exarcerbation Additional Diagnosis: acute hypoxic repsiratory failure Discharge Disposition: home or self care Discharge Instructions General Discharge Information Code Status: Full Code Patient's Diet: REGULAR DIET Patient's Activity: As tolerated Follow-Up Instructions/Appts: Pt is to follow up with Dr Tran (within a week) Medications at Discharge Discharge Medications: Start taking the following new medications: Prednisone (Prednisone) 10 MG TABLET 1 Tablet ORAL See Instructions Qty = 42 No Refills Instructions: TAKE 6 TABS FOR ONE DAY (10/21), THEN TAKE 5 TABS FOR TWO DAYS (10/22-10/23), THEN TAKE 4 TABS FOR TWO DAYS (10/24-10/25), THEN TAKE 3 TABS FOR TWO DAYS (10/26-10/27), THEN TAKE 2 TABS FOR TWO DAYS (10/28-10/29), THEN TAKE 1 TAB FOR TWO DAYS (10/30-10/31), THEN STOP. Comments: Last Taken:10/20/16 Time:1130 AM Budesonide/Formoterol Fumarate (Symbicort 160-4.5 Mcg Inhaler) 160 MCG-4.5 MCG/ ACTUATION HFA.AER.AD 2 Puff Inhale through mouth TWICE DAILY Days = 28 No Refills Comments: Last Taken:10/20/16 Time:1000 AM Omeprazole (Omeprazole) 20 MG CAPSULE.DR 40 Milligram ORAL DAILY BEFORE BREAKFAST Days = 28 No Refills Comments: Last Taken:10/20/16 Time:0600 Loratadine (Loratadine) 10 MG TABLET 10 Milligram ORAL DAILY Days = 28 No Refills Comments: Last Taken:10/20/16 Time:1000 AM Fluticasone Propionate (Fluticasone Propionate) 50 MCG/ACTUATION SPRAY.SUSP 2 [place] In the nose DAILY Days = 28 No Refills Comments: Last Taken:10/20/16 Time:1130 AM Albuterol Sulfate (Proair Hfa) 90 MCG HFA.AER.AD 2 Puff Inhale through mouth EVERY 4-6 HOURS NEEDED as needed for SOB Qty = 1 No Refills Comments: Last Taken:10/20/16 Time:1100 ( NEBULIZER GIVEN IN HOSPITAL ) Copies To: JENN BLAKELY,HAIDER Vieyra; JILLIAN BLAKELY,KRUPA Hill Attending Review Statement Documenting Attending: HAIDER BARAJAS MD Other Findings: Pt seen and examined at bedside. d/w resident the care plan. Pt with 4-6 episodes per year of asthma exacerbation. She had allergy testing done and was told she is allergic to dust. Pt doing better now and her asthma exacerbation is resolving. No desaturations with ambulation today. DC home today.
== END 2016-10-20 14:15 | DRG 203 ==
LOC: ENRESERVDT → ENRESERVTM → ERH 18:48 → ERHI 23:12 → 2NA 23:12 → ENPENDDIS 23:12 → 2NA 10-18 02:03
PROVIDERS: Internal Medicine; Physician Assistant Surgical; ADMIT Student in an Organized Health Care Education/Training Program
DX: J45.52 Severe persistent asthma with status asthmaticus (principal); G47.33 Obstructive sleep apnea (adult) (pediatric); R09.02 Hypoxemia
CPT/HCPCS: 2NAP; ERO; 82436; 93005; 93010; 96365; 96375; 99291; J1650; J2920; J2930; J3490